=== PATIENT | female | born 1990 | race Caucasian/White ===

== ENCOUNTER 2017-01-14 03:50 | Emergency (ER) | payer MEDICAID ==
[~2017-01-14] VITALS: Ht 152.4 cm; Wt 60.5 kg
[2017-01-14 03:58] VITALS: Ht 152.4 cm; Wt 60.5 kg
--- NOTE | 2017-01-14 04:35 | ERD ---
ER Documentation Chief Complaint Date/Time DATE: 01/14/17 TIME: 04:33 Chief Complaint 14 wks preg, passed 1 large clot today, no pain or other s/s HPI 26-year-old female presents here in emergency department for complaints of vaginal bleeding that started today. Patient passed a large clot today, denies any abdominal pain. Patient's approximate 14 weeks , 1 para 0 0. Last menstruation for 09/25/16. Patient denies any fever or chills. ROS All systems reviewed and are negative except as per history of present illness. Medications Home Meds Reported Medications [none] Unknown Strength No Conflict Check 01/14/17 Allergies Allergies: Coded Allergies: No Known Allergy (Unverified , 01/14/17) PMhx/Soc Medical and Surgical Hx: pt denies Medical Hx, pt denies Surgical Hx Hx Alcohol Use: No Hx Substance Use: No Hx Tobacco Use: No Smoking Status: Never smoker FmHx Family History: No coronary disease, No diabetes, No other Physical Exam Vitals Vital Signs Date Time Temp Pulse Resp B/P Pulse Ox O2 Delivery O2 Flow Rate FiO2 01/14/17 03:58 98.0 78 15 124/72 100 Physical Exam GENERAL: The patient is well developed and appropriate for usual state of health, in no apparent distress. CHEST: Clear to auscultation bilaterally. There are no rales, wheezes or rhonchi. HEART: Regular rate and rhythm. No murmurs, clicks, rubs or gallops. No S3 or S4. ABDOMEN: Soft, nontender and nondistended. Good bowel sounds. No rebound or guarding. No gross peritonitis. No gross organomegaly or masses. No Cam sign or McBurney point tenderness. BACK: No midline or flank tenderness. EXTREMITIES: Equal pulses bilaterally. There is no peripheral clubbing, cyanosis or edema. No focal swelling or erythema. Full range of motion. Grossly neurovascularly intact. NEURO: Alert and oriented. Cranial nerves 2-12 intact. Motor strength in all 4 extremities with 5/5 strength. Sensation grossly intact. Normal speech and gait. SKIN: There is no apparent rash or petechia. The skin is warm and dry. HEMATOLOGIC AND LYMPHATIC: There is no evidence of excessive bruising or lymphedema. No gross cervical, axillary, or inguinal lymphadenopathy. Result Diagram: 01/14/17 0427 Results 24 hrs Laboratory Tests Test 8/6/17 04:22 01/14/17 04:27 Urine Color YELLOW Urine Clarity CLOUDY Urine pH 7.0 Urine Specific [place] 1.013 Urine Ketones NEGATIVEmg/dL Urine Nitrite NEGATIVEmg/dL Urine Bilirubin NEGATIVEmg/dL Urine Urobilinogen NEGATIVEmg/dL Urine Leukocyte Esterase NEGATIVELeu/ul Urine Microscopic RBC 1/HPF Urine Microscopic WBC 3/HPF Urine Amorphous Crystals MANY/HPF Urine Hemoglobin 2+mg/dL Urine Glucose NEGATIVEmg/dL Urine Total Protein NEGATIVEmg/dl White Blood Count 8.010^3/ul Red Blood Count 4.2110^6/ul Hemoglobin 12.9g/dl Hematocrit 36.9% Mean Corpuscular Volume 87.6fl Mean Corpuscular Hemoglobin 30.6pg Mean Corpuscular Hemoglobin Concent 35.0g/dl Red Cell Distribution Width 12.5% Platelet Count 89335^3/UL Mean Platelet Volume 10.5fl Neutrophils % 60.9% Lymphocytes % 30.2% Monocytes % 5.9% Eosinophils % 2.0% Basophils % 0.6% Nucleated Red Blood Cells % 0.0/100WBC Neutrophils # 4.910^3/ul Lymphocytes # 2.410^3/ul Monocytes # 0.510^3/ul Eosinophils # 0.210^3/ul Basophils # 0.110^3/ul Nucleated Red Blood Cells # 0.010^3/ul Beta HCG, Quantitative 43345.0mIU/ml PROCEDURE: US OB. CLINICAL INDICATION: Vaginal bleeding. Clinical estimated gestational age is 18 weeks 1 day with estimated date of delivery 06/16/2017 TECHNIQUE: Multiple sonographic images of the pelvis were obtained. The images were reviewed on a PACS workstation. COMPARISON: No prior studies are available for comparison. FINDINGS: There is a single live intrauterine gestation. Cardiac activity is present with 138 beats per minute. There is a breech presentation. Measurements were made in order to determine age. The results are as follows: BPD = 2.89 cm, 15 weeks 2 days HC = 10.49 cm, 15 weeks 0 days AC = 8.47 cm, 14 weeks 5 days FL = 1.55 cm, 14 weeks 4 days. Estimated gestational age of approximately 14 weeks 6 days. The estimated date of delivery is 07/09/2017. The EFW = 104.7 g, 0 pounds 4 ounces, less than 3% . The placenta is anterior and grade 0. There is no evidence for an abruption. There is a normal amount of amniotic fluid with maximum vertical pocket of 3.28 cm. IMPRESSION: Single live intrauterine gestation of approximately 14 weeks 6 days based on ultrasound measurements. The estimated date of delivery is 07/09/2017 . Estimated weight is less than 3%. RPTAT: HJES .Alexy iRzo MD, MD Date Time Electronically viewed and signed by .Alexy Rizo MD, MD on 01/14/2017 04:52 .S/ CC: GILDA FIERRO PROJECT CONTROL OFFICER Procedures/MDM Medical Decision Making: Patients vaginal bleeding is most likely consistent of possible threatened . Patient does not show any evidence of hypovolemic shock. Patients hemoglobin and hematocrit is stable. There is low suspicion for ectopic . NITA results show a viable 14 weeks . BetaHCG Quantitative is appropriate for .The patient is Rh+, does not need RhoGAM this time. There is no signs of symptoms of dehydration. There is low suspicion for sepsis. Patient appears well and is hemodynamically stable. Disposition: Home. Condition: Stable Instructions: Patient is advised to do bed rest, avoid heavy lifting, and avoid having sex until cleared by OB doctor. Patient is advised to follow up with OB doctor or here at the ER in 48 hours for reevaluation of symptoms, repeat beta HCG quantitative and ultrasound. Patient is advised that is symptoms are worst, severe bleeding, dizziness, severe abdominal pain, fever, worst signs and symptoms to return to the emergency department immediately. Disclaimer: Inadvertent spelling and grammatical errors are likely due to EHR/ dictation software use and do not reflect on the overall quality of patient care. Also, please note that the electronic time recorded on this note does not necessarily reflect the actual time of the patient encounter. Departure Diagnosis: Primary Impression: Vaginal bleeding in patient at less than 20 weeks gestation Additional Impression: Intrauterine Condition: Stable Patient Instructions: Bleeding During Early Additional Instructions: Patient is advised to do bed rest, avoid heavy lifting, and avoid having sex until cleared by OB doctor. Patient is advised to follow up with OB doctor or here at the ER in 48 hours for reevaluation of symptoms, repeat beta HCG quantitative and ultrasound. Patient is advised that is symptoms are worst, severe bleeding, dizziness, severe abdominal pain, fever, worst signs and symptoms to return to the emergency department immediately. GILDA FIERRO NP Jan 14, 2017 04:35
[2017-01-14 04:45] LABS: BASOPHIL # 0.1 10^3/ul (0.0-0.1); BASOPHILS % 0.6 % (0.0-2.0); EOSINOPHILS # 0.2 10^3/ul (0.0-0.5); HEMATOCRIT 36.9 % (37.0-47.0); HEMOGLOBIN 12.9 g/dl (12.0-16.0); LYMPHOCYTES # 2.4 10^3/ul (0.8-2.9); LYMPHOCYTES % 30.2 % (15.0-51.0); MEAN CORPUSCULAR HEMOGLOBIN 30.6 pg (29.0-33.0); MEAN CORPUSCULAR VOLUME 87.6 fl (82.0-101.0); MEAN PLATELET VOLUME 10.5 fl (7.4-10.4); MONOCYTE # 0.5 10^3/ul (0.3-0.9); MONOCYTES % 5.9 % (0.0-11.0); NEUTROPHIL # 4.9 10^3/ul (1.6-7.5); NEUTROPHILS % 60.9 % (39.0-77.0); PLATELET COUNT 216 10^3/UL (140-415); RED BLOOD COUNT 4.21 10^6/ul (4.20-5.40); RED CELL DISTRIBUTION WIDTH 12.5 % (11.5-14.5)
--- NOTE | 2017-01-14 04:53 | RADRPT ---
PROCEDURE: US OB. CLINICAL INDICATION: Vaginal bleeding. Clinical estimated gestational age is 18 weeks 1 day with estimated date of delivery 06/16/2017 TECHNIQUE: Multiple sonographic images of the pelvis were obtained. The images were reviewed on a PACS workstation. COMPARISON: No prior studies are available for comparison. FINDINGS: There is a single live intrauterine gestation. Cardiac activity is present with 138 beats per minut e. There is a breech presentation. Measurements were made in order to determine age. The results are as follows: BPD =2.89 cm, 15 weeks 2 days HC =10.49 cm, 15 weeks 0 days AC =8.47 cm, 14 weeks 5 days FL =1.55 cm, 14 weeks 4 days. Estimated gestational age of approximately 14 weeks 6 days. The estimated date of delivery is 07/09/2017. The EFW = 104.7 g, 0 pounds 4 ounces, less than 3% . The placenta is anterior and grade 0. There is no evidence for an abruption. There is a normal amount of amniotic fluid with maximum vertical pocket of 3.28 cm. IMPRESSION: Single live intrauterine gestation of approximately 14 weeks 6 days based on ultrasound measurements . The estimated date of delivery is 07/09/2017 . Estimated weight is less than 3%. RPTAT: HJES .Alexy Rizo MD, Date Time Electronically viewed and signed by .Alexy Rizo MD, MD on 01/14/2017 04:52 .S/
[2017-01-14 04:56] LABS: ADD UMIC YES; UR AMORPHOUS CRYSTAL MANY /HPF (NONE SEEN); UR ASCORBIC ACID NEGATIVE (NEGATIVE); UR BILIRUBIN (Dip) NEGATIVE (NEGATIVE); UR BLOOD (Dip) 2+ mg/dL (NEGATIVE); UR CLARITY CLOUDY (CLEAR); UR COLOR YELLOW (YELLOW); UR GLUCOSE (Dip) NEGATIVE (NEGATIVE); UR KETONES (Dip) NEGATIVE (NEGATIVE); UR LEUKOCYTE ESTERASE (Dip) NEGATIVE Leu/ul (NEGATIVE); UR NITRITE (Dip) NEGATIVE (NEGATIVE); UR RBC 1 /HPF (0-5); UR SPECIFIC GRAVITY (Dip) 1.013 (1.003-1.030); UR TOTAL PROTEIN (Dip) NEGATIVE (NEGATIVE); UR UROBILINOGEN (Dip) NEGATIVE (NEGATIVE)
== END 2017-01-14 05:49 | disposition home or self-care (01) ==
LOC: FTE 03:50
DX: O20.9 Hemorrhage in early pregnancy, unspecified (principal); N89.8 Other specified noninflammatory disorders of vagina; Z3A.14 14 weeks gestation of pregnancy
CPT/HCPCS: 36415; 76805; 81001; 84702; 85025; 86900; 86901

== ENCOUNTER 2017-06-23 13:53 | Inpatient (IN) | END 2017-06-25 12:50 | disposition home or self-care (01) | DRG 775 ==

== ENCOUNTER 2018-09-24 21:02 | Inpatient (IN) | payer MEDICAID ==
[~2018-09-24] VITALS: Ht 152.4 cm; Wt 70.6 kg
[2018-09-24] MEDS ORDERED: LACTATED RINGER'S 1,000 ML IV SCH (21:11)
[2018-09-24] MEDS ORDERED: LACTATED RINGER'S 1,000 ML IV PRN (21:11)
--- NOTE | 2018-09-24 21:16 | TRIAGE ---
OB Triage Datetime Report Generated by CPN: 09/24/2018 21:16 Datetime: 09/24/2018 21:12 Vaginal Exam Dilatation (cms): 10.0 Effacement (%): 100 Station: 0 Exam By: SRUTHI Membrane Status: Intact Vaginal Bleeding: None Cervix, Consistency: Soft Cervix, Position: Anterior Datetime: 09/24/2018 21:08 EGA: 38.2 Datetime: 09/24/2018 21:00 Time of Arrival: 09/24/2018 21:00 Arrived By: Wheelchair Arrived From: Home Chief Complaint: uc's since 11 Movement: Present Contractions: Regular Rupture of Membranes: Denies Vaginal Bleeding: Scant Vaginal Discharge: Denies Recent Sexual Intercouse: Denies Abdominal Trauma: Not Applicable Patient Complaints: Contractions Time Provider Notified: 09/24/2018 21:10 Provider Notified: delshad Initial Plan: kade drummond
[2018-09-24 21:23] VITALS: Ht 152.4 cm; Wt 70.6 kg
[2018-09-24] MEDS ORDERED: METHYLERGONOVINE 0.2 MG INJ IM PRN (21:30)
[2018-09-24] MEDS ORDERED: BUTORPHANOL 2 MG INJ IV PRN (21:30)
[2018-09-24] MEDS ORDERED: MISOPROSTOL 200 MCG TAB PR PRN (21:30)
[2018-09-24] MEDS ORDERED: OXYTOCIN 30 UNITS/LR 500 ML IV SCH ×2 (21:30)
[2018-09-24] MEDS ORDERED: OXYTOCIN 30 UNITS/LR 500 ML IV PRN (21:30)
[2018-09-24] MEDS ORDERED: CARBOPROST 250 MCG INJ IM PRN (21:30)
[2018-09-24] MEDS ORDERED: IBUPROFEN 600 MG TAB PO PRN (21:30)
[2018-09-24] MEDS ORDERED: LIDOCAINE 1% (MPF) 30 ML INJ INJ PRN (21:30)
--- NOTE | 2018-09-24 22:48 | HP ---
Date/Time of Note Date/Time of Note DATE: 09/24/18 TIME: 22:46 OB - History Hx of Present Chief Complaint: contractions Estimated Due Date: Oct 07, 2018 : 3 Para: 2 Spontaneous : 0 Therapeutic : 0 Care: Good Care Ultrasounds: Normal mid trimester US Obstetrical Complications: None Medical Complications: None Past Family/Social History * Past Medical, Surgical, Family and Obstetric Histories reviewed from chart. GBS Status: Negative OB Admission Exam Physical Exam HEENT: WNL Heart: Rhythm Normal Lungs: Clear, Equal Abdomen: WNL Extremities: Normal Reflexes: Normal Cervical Dilatation: 10cm Effacement: 100% Station: -1 Membranes: Intact Heart Rate: 120's Accelerations: Accelerations Present Decelerations: No Decelerations Varibility: Moderate Last 72 hours Lab Results CBC & BMP 09/24/18 21:15 OB Assessment/Plan Reason for admission: active labor Plan: Expectant Management JAS LATHAM MD Sep 24, 2018 22:48
--- NOTE | 2018-09-24 22:51 | LDN ---
Date/Time of Note Date/Time of Note DATE: 09/24/18 TIME: 22:49 Delivery Summary Weeks of Gestation 38 weeks Placenta Delivered: Spontaneously Meconium: none Episiotomy: No Laceration repair: Scond degree perineal laceration repaired with 3-0 Vicryl and 3-0 chromic. Anesthesia type: Local Estimated blood loss: 300 Sponge & Needle done & correct: Yes All needle counts correct: Yes Any foreign bodies felt in the: No Delivery Information Sex Sex: male Apgars 1 Minute: 9 5 Minute: 9 Suctioning Nose & mouth suctioned at kae: No Delee suction performed: No Umbilical Cord Umbilical cord with: 3 Vessels Cord presentations: no nuchal cord Cord Blood was obtained: Yes Mother & Baby Disposition Disposition Mom & Baby to Maternity; Good: Yes JAS LATHAM MD Sep 24, 2018 22:51
[2018-09-25 00:10] VITALS: BP 125/74; PULSE 74; RESP 18
[2018-09-25] MEDS: LACTATED RINGER'S 1,000 ML IV* SCH ×2 (00:39→08:39)
[2018-09-25] MEDS: IBUPROFEN 600 MG TAB PO SCH ×4 (01:00→17:30)
[2018-09-25] MEDS ORDERED: BENZOCAINE 20% 56 ML SPRAY TOP PRN (01:00)
[2018-09-25] MEDS ORDERED: CARBOPROST 250 MCG INJ IM PRN (01:00)
[2018-09-25] MEDS ORDERED: HYDROCODONE/APAP (5/325) TAB PO PRN (01:00)
[2018-09-25] MEDS ORDERED: DIBUCAINE 1% 30 GM OINT TOP PRN (01:00)
[2018-09-25] MEDS ORDERED: METHYLERGONOVINE 0.2 MG INJ IM PRN (01:00)
[2018-09-25] MEDS ORDERED: OXYTOCIN 30 UNITS/LR 500 ML IV PRN (01:00)
[2018-09-25] MEDS ORDERED: WITCH HAZEL/GLYCERIN PAD PR PRN (01:00)
[2018-09-25] MEDS ORDERED: ACETAMINOPHEN 325 MG TAB PO PRN (01:00)
[2018-09-25] MEDS ORDERED: MISOPROSTOL 200 MCG TAB PR PRN (01:00)
[2018-09-25 04:45] VITALS: BP 104/56; PULSE 81; RESP 19
[2018-09-25 08:30] VITALS: BP 110/60; PULSE 88; RESP 18
[2018-09-25] MEDS: SENNA/DOCUSATE NA (8.6MG/50MG) TAB PO SCH (09:21)
--- NOTE | 2018-09-25 15:09 | PN ---
Date/Time of Note Date/Time of Note DATE: 09/25/18 TIME: 15:08 OB Subjective Subjective Subjective PPD# 1 Patient is doing well. She denies nausea, vomiting, shortness of breath, chest pain, headache. She has been ambulating without difficulty, tolerating regular diet. Pain is well controlled on current medications OB Objective Objective Objective VS - Last 72 Hours, by Label Date Temp Pulse Resp B/P (MAP) Pulse Ox O2 O2 Flow FiO2 Time Delivery Rate 09/25/18 98.4 88 18 110/60 Room Air 08:30 (77) 09/25/18 98.0 81 19 104/56 Room Air 04:45 (72) 09/25/18 98.0 74 18 125/74 Room Air 00:10 (91) General: AAO X 3, comfortable, NAD, appropriate mood and affect. ABD: +BS. Soft, non-tender. Uterus 2 cm below umbilicus Flank: No CVA tenderness (B/L) LE: Mild edema. No clubbing, cyanosis, thigh or calf tenderness (B/L). Homans 'sign is negative Laboratory Tests Test 09/24/18 21:15 09/25/18 06:28 09/25/18 07:04 White Blood Count 11.3 10^3/ul 13.9 10^3/ul Red Blood Count 4.53 10^6/ul 4.16 10^6/ul Hemoglobin 13.6 g/dl 12.5 g/dl Hematocrit 40.4 % 37.4 % Mean Corpuscular Volume 89.2 fl 89.9 fl Mean Corpuscular 30.0 pg 30.0 pg Hemoglobin Mean Corpuscular 33.7 g/dl 33.4 g/dl Hemoglobin Concent Red Cell Distribution 12.9 % 13.0 % Width Platelet Count 167 10^3/UL 160 10^3/UL Mean Platelet Volume 11.1 fl 11.2 fl Immature Granulocytes % 0.500 % 0.400 % Neutrophils % 74.7 % 77.3 % Lymphocytes % 18.5 % 14.7 % Monocytes % 5.4 % 6.9 % Eosinophils % 0.5 % 0.3 % Basophils % 0.4 % 0.4 % Nucleated Red Blood Cells 0.0 /100WBC 0.0 /100WBC % Immature Granulocytes # 0.060 10^3/ul 0.050 10^3/ul Neutrophils # 8.4 10^3/ul 10.8 10^3/ul Lymphocytes # 2.1 10^3/ul 2.1 10^3/ul Monocytes # 0.6 10^3/ul 1.0 10^3/ul Eosinophils # 0.1 10^3/ul 0.0 10^3/ul Basophils # 0.1 10^3/ul 0.1 10^3/ul Nucleated Red Blood Cells 0.0 10^3/ul 0.0 10^3/ul # Prothrombin Time 11.9 Sec Prothrombin Time Ratio 0.9 INR International 0.87 Normalized Ratio Activated 27.8 Sec Partial Thromboplast Time Hepatitis B Surface NEGATIVE Antigen Lab Scanned Report [facility] [id number] OB Assessment/Plan Other plan: 27-year-old s/p normal vaginal delivery at 38 weeks. PPD#1 - AF, VSS - Baby is doing well, at bed side. She is bonding well - Contraception methods with R/B/A/FR discussed - Continue care - Discharge home tomorrow - Rx and instruction given - Follow up in 2 and 6 weeks at clinic JUNAID CROSS Sep 25, 2018 15:09
--- NOTE | 2018-09-25 15:13 | DS ---
Date/Time of Note Date/Time of Note DATE: 09/25/18 TIME: 15:10 Obstetrical Discharge Record Final Diagnosis Final Diagnosis: Term delivered Other Final Diagnosis 27-year-old s/p normal vaginal delivery at 38 weeks. PPD#1. course was unremarkable. She is ambulating and tolerating regular diet. She is voiding without difficulty. Pain is controlled on current medication. - AF, VSS - Baby is doing well, at bed side. She is bonding well - Contraception methods with R/B/A/FR discussed - Continue care - Discharge home tomorrow - Rx and instruction given - Follow up in 2 and 6 weeks at clinic Vaginal Delivery Obstetrical Delivery: Spontaneous Condition on Discharge Physical Assessment Last Vitals: Vital Signs Date Temp Pulse Resp B/P (MAP) Pulse Ox O2 O2 Flow FiO2 Time Delivery Rate 09/25/18 98.4 88 18 110/60 Room Air 08:30 (77) Voiding: Yes Bowel Movement: Yes Breast: Soft, non-tender Fundus: Firm Calf Tenderness: No Patient Condition: Stable JUNAID CROSS Sep 25, 2018 15:13
[2018-09-25 16:02] VITALS: BP 116/64; PULSE 75; RESP 18
[2018-09-25 20:00] VITALS: BP 144/80; PULSE 73; RESP 18
[2018-09-26] MEDS: IBUPROFEN 600 MG TAB PO SCH ×3 (00:07→12:03)
[2018-09-26] MEDS: SENNA/DOCUSATE NA (8.6MG/50MG) TAB PO SCH ×2 (00:07→09:24)
[2018-09-26 04:15] VITALS: BP 106/56; PULSE 63; RESP 18
[2018-09-26 08:00] VITALS: BP 112/72; PULSE 72; RESP 18
[2018-09-26] MEDS ORDERED: DIPHTH/TET/ACEL PERTUSS (ADULT) 0.5 ML VIAL IM* ONE (09:00)
--- NOTE | 2018-09-26 12:03 | PN ---
Date/Time of Note Date/Time of Note DATE: 09/26/18 TIME: 12:01 OB Subjective Subjective Subjective Denies any complaint. Reports decreased vaginal bleeding. Breast-feeding. Ambulating. Urinated. OB Objective Objective Objective Appearance: Alert and oriented x4 does not appear to be in any acute distress Abdomen: Soft, fundus firm palpable nontender above the umbilicus and nontender extremities: No calf tenderness, no clinical edema no cord palpable Breasts: No evidence of mastitis or engorgement Laboratory Tests Test 09/24/18 21:15 09/25/18 06:28 09/25/18 07:04 White Blood Count 11.3 10^3/ul 13.9 10^3/ul Red Blood Count 4.53 10^6/ul 4.16 10^6/ul Hemoglobin 13.6 g/dl 12.5 g/dl Hematocrit 40.4 % 37.4 % Mean Corpuscular Volume 89.2 fl 89.9 fl Mean Corpuscular 30.0 pg 30.0 pg Hemoglobin Mean Corpuscular 33.7 g/dl 33.4 g/dl Hemoglobin Concent Red Cell Distribution 12.9 % 13.0 % Width Platelet Count 167 10^3/UL 160 10^3/UL Mean Platelet Volume 11.1 fl 11.2 fl Immature Granulocytes % 0.500 % 0.400 % Neutrophils % 74.7 % 77.3 % Lymphocytes % 18.5 % 14.7 % Monocytes % 5.4 % 6.9 % Eosinophils % 0.5 % 0.3 % Basophils % 0.4 % 0.4 % Nucleated Red Blood Cells 0.0 /100WBC 0.0 /100WBC % Immature Granulocytes # 0.060 10^3/ul 0.050 10^3/ul Neutrophils # 8.4 10^3/ul 10.8 10^3/ul Lymphocytes # 2.1 10^3/ul 2.1 10^3/ul Monocytes # 0.6 10^3/ul 1.0 10^3/ul Eosinophils # 0.1 10^3/ul 0.0 10^3/ul Basophils # 0.1 10^3/ul 0.1 10^3/ul Nucleated Red Blood Cells 0.0 10^3/ul 0.0 10^3/ul # Prothrombin Time 11.9 Sec Prothrombin Time Ratio 0.9 INR International 0.87 Normalized Ratio Activated 27.8 Sec Partial Thromboplast Time Rapid Plasma Reagin NONREACTIVE Hepatitis B Surface NEGATIVE Antigen Lab Scanned Report [facility] [id number] OB Assessment/Plan Other Assessment: Status post day #2 doing well Stable for discharge Follow-up at 6 is with the primary OB office or sooner as needed LIZET HOGAN MD Sep 26, 2018 12:02
--- NOTE | 2018-09-26 12:04 | PD.PPDC ---
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
--- NOTE | 2018-09-27 13:44 | DELSUM ---
Delivery Summary A-C Datetime Report Generated by CPN: 09/27/2018 13:44 DELIVERY PERSONNEL Cardiac Rehabilitation Program Director: Schulz, Bernadette MATERNAL INFORMATION Delivery Anesthesia: None Medications in Delivery: 30 units of pitocin with LR Delivery QBL (ml): 300 Placenta Cultured: No Maternal Complications: None RN Comments: PT STATES SHE STARTED FEELING HER CONTRACTIONS 09/24/18 @1100 LABOR SUMMARY EDC: 10/07/2018 00:00 No. Babies in Womb: 1 Attempted: No Labor Anesthesia: None LABOR INFORMATION Onset of Labor: 09/24/2018 11:00 Complete Dilatation: 09/24/2018 21:12 Oxytocin: N/A Group B Beta Strep: Negative Steroids Given: None Reason Steroids Not Administered: Not Applicable MEMBRANES Membranes Rupture Method: Artificial Rupture of Membranes: 09/24/2018 22:20 Length of Rupture (hr): 0.05 Amniotic Fluid Color: Clear Amniotic Fluid Amount: Small Amniotic Fluid Odor: None STAGES OF LABOR Stage 1 hr: 10 Stage 1 min: 12 Stage 2 hr: 1 Stage 2 min: 11 Stage 3 hr: 0 Stage 3 min: 3 Total Time in Labor hr: 11 Total Time in Labor min: 26 VAGINAL DELIVERY Episiotomy: None Laceration Extension: Second Degree Laceration Type: Perineal Laceration Repair: Yes Initial Vag Sponge Count: 10 Final Vag Sponge Count: 10 Initial Vag Sharps Count: 1+2 Final Vag Sharps Count: 3 Sponge Count Correct: Yes; Vaginal Sweep Performed Sharps Count Correct: Yes BABY A INFORMATION Delivery Date/Time: 09/24/2018 22:23 Method of Delivery: Vaginal Born in Route : No : N/A Forceps: N/A Vacuum Extraction: N/A Shoulder Dystocia : N/A SHOULDER DYSTOCIA BABY A Delivery Date/Time: 09/24/2018 22:23 PRESENTATION/POSITION BABY A Presentation: Cephalic Cephalic Presentation: Vertex Vertex Position: Left Occipital Anterior Breech Presentation: N/A PLACENTA INFORMATION BABY A Placenta Delivery Time : 09/24/2018 22:26 Placenta Method of Delivery: Spontaneous Placenta Status: Delivered SCORES BABY A Heart Rate 1 min: >100 bpm Resp Effort 1 min: Good Cry Reflex Irritability 1 min: Cough/Sneeze/Pulls Away Muscle Tone 1 min: Active Motion Color 1 min: Body [place], Extremit Blue Resuscitation Effort 1 min: Tactile Stimulation SCORE 1 MIN: 9 Heart Rate 5 min: >100 bpm Resp Effort 5 min: Good Cry Reflex Irritability 5 min: Cough/Sneeze/Pulls Away Muscle Tone 5 min: Active Motion Color 5 min: Body [place], Extremit Blue Resuscitation Effort 5 min: Tactile Stimulation SCORE 5 MIN: 9 INFORMATION BABY A Gestational Age at Delivery: 38.2 Gestational Status: Early Term- 37- 38.6 Weeks Outcome : Liveborn Infant Condition : Stable Infant Sex: Male IDENTIFICATION/MEDS BABY A ID Band Number: [id number] ID Band Location: Right Leg; Left Arm Sensor Applied: Yes Sensor Number: [id number] Sensor Location : Cord Clamp Vitamin K Given : Not Given Erythromycin Given: Not Given WEIGHT/LENGTH BABY A Birthweight (gm): 3430 Infant Weight (lb): 7 Infant Weight (oz): 9 Length (in): 20.00 Length (cm): 50.80 CORD INFORMATION BABY A No. Cord Vessels: 3 Nuchal Cord : N/A Cord Blood Taken: Yes Infant Suction: Mouth; Nose ASSESSMENT BABY A Infant Complications: None Physical Findings at Delivery: Bruising; Within Normal Limits Physical Findings- Other: BABY VOID X1 bruising on forehead Respirations: Appears Normal Blocker [employer] Forms/ALS Called : No Care By: JAMESON VAZQUEZ Transferred To: Remains with Mother
== END 2018-09-26 13:43 | disposition home or self-care (01) | DRG 807 ==
LOC: OBT 21:02 → L-D 21:03 → OBT 21:05 → L-D 21:05 → PP1 09-25 00:08
PROVIDERS: ADMIT Obstetrics & Gynecology; ATTEND Obstetrics & Gynecology
PROC: 10E0XZZ Delivery of Products of Conception, External Approach (ICD-10-PCS; principal; 2018-09-24)
PROC: 0KQM0ZZ Repair Perineum Muscle, Open Approach (ICD-10-PCS; 2018-09-24)
DX: O70.1 Second degree perineal laceration during delivery (principal); Z37.0 Single live birth; Z3A.38 38 weeks gestation of pregnancy
CPT/HCPCS: 85025; 85610; 85730; 86592; 86850; 86900; 86901; 87340; G0463; J2590; J7120